=== PATIENT | female | born 1985 | race Caucasian/White ===

== ENCOUNTER → 2022-05-11 | Outpatient (REF) | payer OTHER ==
[2022-05-11 18:08] LABS: APPEARANCE, URINE HAZY (CLEAR); BACTERIA, URINE AUTO NEGATIVE (NEGATIVE); BILIRUBIN, URINE AUTO NEGATIVE (NEGATIVE); BLOOD, URINE BLOOD 2+ (NEGATIVE); COLOR, URINE YELLOW (YELLOW); GLUCOSE, URINE (UA) AUTO NEGATIVE (NEGATIVE); KETONE, URINE AUTO TRACE mg/dL (NEGATIVE); LEUKOCYTE ESTERASE, URINE AUTO NEGATIVE (NEGATIVE); MUCUS, URINE SMALL (NEGATIVE); NITRITE, URINE AUTO NEGATIVE (NEGATIVE); PROTEIN, URINE AUTO NEGATIVE (NEGATIVE); RBC, URINE AUTO 1 /HPF (0-3); SPECIFIC GRAVITY URINE AUTO 1.015 (1.002-1.035); SQUAMOUS EPITHELIAL CELL UR AU 7 /HPF (0-6); UROBILINOGEN, URINE AUTO 0.2 mg/dL (0.0-2.0); WBC, URINE AUTO 2 /HPF (0-3)
[2022-05-11 18:12] LABS: BASO % 0.4 % (0.0-1.0); EOS # 0.1 10^3/uL (0.0-0.5); EOS % 1.4 % (0.0-3.0); HEMOGLOBIN 12.2 g/dl (12.0-15.5); LYMPH # 2.2 10^3/uL (1.5-5.0); LYMPH % 25.7 % (24.0-44.0); MEAN CORPUSCULAR HGB CONC 31.3 g/dl (32.0-36.5); MEAN CORPUSCULAR VOLUME 89.4 fl (80.0-96.0); MONO # 0.4 10^3/uL (0.0-0.8); MONO % 4.6 % (2.0-8.0); NEUTROPHILS # 5.7 10^3/uL (1.5-8.5); NEUTROPHILS % 67.5 % (36.0-66.0); PLATELET COUNT, AUTOMATED 267 10^3/uL (150-450); RED BLOOD COUNT 4.36 10^6/uL (4.00-5.40); WHITE BLOOD COUNT 8.4 10^3/uL (4.0-10.0)
[2022-05-11 18:17] LABS: ALKALINE PHOSPHATASE 88 U/L (46-116); ALT/SGPT 18 U/L (7.0-40); AST/SGOT 15 U/L (<34); BILIRUBIN,TOTAL 0.4 MG/DL (0.3-1.2); BLOOD UREA NITROGEN 9 MG/DL (9-23); CARBON DIOXIDE LEVEL 26 MMOL/L (20-31); CHLORIDE LEVEL 103 MMOL/L (98-107); CREATININE FOR GFR 0.65 MG/DL (0.55-1.30); GLOMERULAR FILTRATION RATE > 60.0 (>60); GLUCOSE, FASTING 79 MG/DL (60-100); SODIUM LEVEL 138 MMOL/L (136-145); TOTAL PROTEIN 7.6 G/DL (5.7-8.2)
[2022-05-11 18:18] LABS: COMPLEMENT C3 156.2 MG/DL (84.0-160.0); COMPLEMENT C4 49.5 MG/DL (12-36)
[2022-05-11 18:31] LABS: TOTAL PROTEIN,RANDOM URINE 7.1 MG/DL (0.0-14.0)
[2022-05-11 18:35] LABS: CREATININE,RANDOM URINE 117.7 MG/DL
[2022-05-11 19:03] LABS: ERYTHROCYTE SEDIMENTATION RATE 50 mm/hr (0-20)
== END ==
LOC: M SFHCRHEU 13:20
PROVIDERS: ATTEND Internal Medicine Rheumatology
DX: R76.8 Other specified abnormal immunological findings in serum (principal); M35.3 Polymyalgia rheumatica; R21 Rash and other nonspecific skin eruption; L40.8 Other psoriasis